=== PATIENT | male | born 1985 | race Caucasian/White ===

== ENCOUNTER → 2021-06-21 10:06 | Outpatient (CLI) | payer OTHER, SELFPAY ==
[2021-06-21 10:39] LABS: COVID19 -Nasal RAPID Negative (Negative)
== END ==
PROVIDERS: Visit Provider Surgery
DX: Z01.812 Encounter for preprocedural laboratory examination (principal); Z20.822 Contact with and (suspected) exposure to COVID-19
CPT/HCPCS: 87635; C9803

== ENCOUNTER 2021-06-22 11:52 | Day surgery (SDC) | payer OTHER, SELFPAY ==
--- NOTE | 2021-06-22 | PATH_ITS ---
[facility] Accession Number: [id number] . 01 Material submitted: . hemorrhoids - HEMORRHOIDS . 02 Diagnosis: A. Hemorrhoids, Hemorrhoidectomy: Hemorrhoidal tissue with mild chronic inflammation and evidence of prior hemorrhage and reactive changes. No evidence of neoplasia or malignancy. MRV 06/25/2021 1331 Local . 02 Electronically signed: . Jacinda Pritchard MD, Pathologist NPI- [id number] . 01 Gross description: . HEMORRHOIDS: Received in formalin are 2 fragments of [place] soft tissue measuring 1.5 x 1.2 x 0.6 cm in aggregate. Tissue is inked. Specimen is sectioned and submitted in entry level account representative sections in 1 cassette. /WILBER 06/23/20212001 Local . 02 Pathologist provided ICD-10: K64.9 . 02 CPT . 951961 Specimen Comment: A courtesy copy of this report has been sent to [phone] Performed at: 01 [facility] [address], [place], [place] [id number] MD Daniel Rendon MD Phone: [phone] Performed at: 02 [facility] [address] [place], [place] [id number] MD Nicole Bush MD Phone: [phone]
[2021-06-22 12:18] VITALS: BP 125/87; PULSE 90; RESP 16; TEMP 36.8; O2SAT 100; BMI 24.4
[2021-06-22] MEDS: LACTATED RINGERS 1,000 ML 100 ML IV (13:01)
--- NOTE | 2021-06-22 13:21 | PM.PREOP ---
Pre-operative Note COVID-19 Criteria for continued procedure: Continuing or worsening of significant or severe pain Interval Note History & Physical reviewed/Exam performed by Physician: Yes Changes to H&P: No
--- NOTE | 2021-06-22 13:37 | SUR.OPER ---
Lithotomy on padded OR bed, head on pillow, arms secured on padded arm boards at <90 degrees abduction. Legs secured in padded yellow fins stirrups.
[2021-06-22] MEDS: BUPIVACAINE 0.25% (PF) VIAL 30 ML INJ (13:40)
[2021-06-22] MEDS: BUPIVACAINE LIPOSOME 266 MG/20 ML VIAL INJ (13:41)
[2021-06-22] MEDS: DIBUCAINE 1% OINT 28 GM 1 APPLIC TOP (13:42)
[2021-06-22 14:06] VITALS: BP 95/64; PULSE 65; RESP 11; TEMP 36.2; O2SAT 98
--- NOTE | 2021-06-22 14:10 | PM.OP.1 ---
Operative Date/Time/Diagnoses Date of procedure: 06/22/21 Time of procedure: 14:10 Pre-op diagnosis: Hemorrhoids Post-op diagnosis: same Procedure & Clinicians Procedure: Excisional hemorrhoidectomy Same procedure as scheduled: Yes Indications: Symptomatic Prolapsing grade 3 hemorrhoids Surgeon: Ramesh Loo Yes if Unassisted: Yes Anesthesia Type: General Operative Notes Findings: prolapsing right posterior hemorrhoid Estimated Blood Loss (mL): 20 Procedure in detail: The patient was brought to the operating room placed supine on the table. Bilateral lower extremity compression devices were applied. General anesthesia was induced and they were intubated with an endotracheal tube. They were then placed into prone position and appropriately padded. They were then prepped and draped in usual sterile fashion. Time-out was performed. Rectal block was performed by injecting 20 mL of Exparel into the intersphincteric groove. An internal examination of the anal canal was made. The right posterior hemorrhoid pedicle freely prolapsed consistent with grade 3. The pedicle was grasped elevated and excised with electrocautery off the internal sphincter. The mucosal defect was then closed with a running 3-0 Vicyrl suture. Hemostasis was checked. The specimens were passed off the field. Wound was irrigated with saline. Gelfoam coated in Dibucaine ointment 1% was then placed into the anal canal. Sponge and instrument counts were correct at the end of the procedure. They emerged from anesthesia were extubated and transferred to the postoperative care unit in stable condition. Complications: none Post-operative Condition: stable Disposition: same day surgery
[2021-06-22 14:11] VITALS: BP 101/68; PULSE 62; RESP 12; O2SAT 98
[2021-06-22 14:15] VITALS: BP 111/82; PULSE 78; RESP 14; O2SAT 98
[2021-06-22 14:21] VITALS: BP 115/75; PULSE 57; RESP 14; TEMP 36.2; O2SAT 99
== END 2021-06-22 14:35 | disposition home or self-care (01) ==
PROVIDERS: Referring Provider Surgery; Visit Provider Surgery
PROC: (CPT 46255; principal; 2021-06-22 13:45)
DX: K64.2 Third degree hemorrhoids (principal)
CPT/HCPCS: 46255; 82962; C9290; J1100; J2405; J2704; J3010

== ENCOUNTER → 2022-10-07 07:05 | Outpatient (CLI) | payer BC, SELFPAY ==
[2022-10-07 08:21] LABS: Cholesterol 183 mg/dL (140-199); Glucose 88 mg/dL (70-100); HDL Cholesterol 56 mg/dL (40-60); LDL Cholesterol Calculated 115 mg/dL (<100); Triglycerides 62 mg/dL (35-150)
== END ==
PROVIDERS: PCP Registered Nurse Diabetes Educator; Referring Provider Registered Nurse Diabetes Educator; Visit Provider Registered Nurse Diabetes Educator
DX: Z00.00 Encounter for general adult medical examination without abnormal findings (principal)
CPT/HCPCS: 36415; 80061; 82947